=== PATIENT | female | born 1955 | race Caucasian/White ===

== ENCOUNTER 2017-12-31 11:18 | Emergency (ER) | payer SELFPAY ==
[~2017-12-31] VITALS: Ht 167.6 cm; Wt 127.3 kg
[~2017-12-31 11:18] MED LIST: ARMOUR THYROID300 MG PO; ASPIR-TRIN325 M1 PO; DIFLUCAN200 MG PO; GLIPIZIDE ER2.5 M1 PO; GLUCOPHAGE500 MG PO; KEFLEX500 MG PO; ZOFRAN4 MG PO
[2017-12-31 13:44] LABS: HEMATOCRIT 43.8 % (36.0-46.0); HEMOGLOBIN 14.9 G/DL (11.9-15.5); MCH 29.9 PG (29.0-34.0); PLATELET COUNT 184 K/uL (156-360); RBC DIS.WIDTH-CV 13.3 % (11.8-14.6); RBC DIS.WIDTH-SD 42.8 % (39-53); RED BLOOD COUNT 4.98 M/uL (3.80-5.20); WHITE BLOOD COUNT 6.6 K/uL (4.1-10.2)
[2017-12-31 13:50] LABS: INTER. NORMALIZED RATIO 1.1
[2017-12-31 13:53] LABS: PTT 27.5 SEC (25-37)
[2017-12-31 13:55] LABS: CHLORIDE 104 mEq/L (99-109); POTASSIUM 4.2 mEq/L (3.7-5.4); SODIUM 135 mEq/L (136-147)
[2017-12-31 13:57] LABS: GLUCOSE 306 mg/dL (70-99)
[2017-12-31 14:01] LABS: CREATININE 0.7 mg/dL (0.6-1.3); GFR ESTIMATE (CALCULATED) > 59 mL/min/; UREA NITROGEN (BUN) 9 mg/dL (9-23)
[2017-12-31] MEDS ORDERED: LOVENOX150 MG/1 M SC ×2 (15:03→15:19)
[2017-12-31] MEDS ORDERED: COUMADIN5 MG PO (15:03)
[2017-12-31 16:06] VITALS: BP 141/60
== END 2017-12-31 16:08 | disposition home or self-care (01) ==
LOC: EME 11:18
PROVIDERS: Emergency Medicine
DX: I82.411 Acute embolism and thrombosis of right femoral vein (principal); I82.441 Acute embolism and thrombosis of right tibial vein; E11.9 Type 2 diabetes mellitus without complications; Z79.84 Long term (current) use of oral hypoglycemic drugs; E03.9 Hypothyroidism, unspecified; Z88.6 Allergy status to analgesic agent
CPT/HCPCS: 80048; 85027; 85610; 85730; 93971; 99281; 99285; J1650

== ENCOUNTER 2018-02-20 18:03 | Emergency (ER) | payer SELFPAY ==
[~2018-02-20] VITALS: Ht 167.6 cm; Wt 93.1 kg
[~2018-02-20 18:03] MED LIST changes: +COUMADIN5 MG PO; +LOVENOX150 MG/1 M SC
[2018-02-20 18:40] LABS: BASOPHIL COUNT 0.1 K/uL (0-0.1); EOSINOPHIL (%) 1.6 % (0-5); EOSINOPHIL COUNT 0.1 K/uL (0-0.3); HEMOGLOBIN 14.3 G/DL (11.9-15.5); IMMATURE GRANULOCYTE (%) 0.3 % (0.0-0.7); LYMPHOCYTE (%) 34.8 % (15-42); LYMPHOCYTE COUNT 2.6 K/uL (1.0-2.8); MCH 29.9 PG (29.0-34.0); MCV 87.7 FL (83-99); MONOCYTE (%) 11.7 % (3-12); MONOCYTE COUNT 0.9 K/uL (0-0.8); NEUTROPHIL (%) 50.6 % (45-76); NEUTROPHIL COUNT 3.7 K/uL (1.8-6.4); PLATELET COUNT 219 K/uL (156-360); RBC DIS.WIDTH-CV 13.8 % (11.8-14.6); RBC DIS.WIDTH-SD 44.6 % (39-53); RED BLOOD COUNT 4.79 M/uL (3.80-5.20); WHITE BLOOD COUNT 7.3 K/uL (4.1-10.2)
[2018-02-20 18:49] LABS: INTER. NORMALIZED RATIO 2.3
[2018-02-20 18:54] LABS: CHLORIDE 99 mEq/L (99-109); POTASSIUM 3.5 mEq/L (3.7-5.4); SODIUM 135 mEq/L (136-147)
[2018-02-20 18:56] LABS: GLUCOSE 275 mg/dL (70-99)
[2018-02-20 19:00] LABS: CREATININE 0.8 mg/dL (0.6-1.3); GFR ESTIMATE (CALCULATED) > 59 mL/min/; UREA NITROGEN (BUN) 6 mg/dL (9-23)
[2018-02-20] MEDS ORDERED: ZITHROMAX250 MG PO (21:51)
[2018-02-20] MEDS ORDERED: DOXYCYCLINE HY100 MG PO (21:58)
[2018-02-20] MEDS ORDERED: TESSALON200 MG PO (21:58)
[2018-02-20 22:10] VITALS: BP 127/60
== END 2018-02-20 22:14 | disposition home or self-care (01) ==
LOC: EME 18:03
PROVIDERS: Emergency Medicine
DX: J18.9 Pneumonia, unspecified organism (principal); J45.909 Unspecified asthma, uncomplicated; E11.65 Type 2 diabetes mellitus with hyperglycemia; R00.0 Tachycardia, unspecified; R94.31 Abnormal electrocardiogram [ECG] [EKG]; E03.9 Hypothyroidism, unspecified; Z79.01 Long term (current) use of anticoagulants; Z79.84 Long term (current) use of oral hypoglycemic drugs; Z79.82 Long term (current) use of aspirin; Z86.718 Personal history of other venous thrombosis and embolism; Z88.6 Allergy status to analgesic agent; Z88.5 Allergy status to narcotic agent
CPT/HCPCS: 71046; 71275; 80048; 82948; 85025; 85610; 87502; 93005; 94640; 99281; 99285; J7512